=== PATIENT | male | born 1955 | race Caucasian/White ===

== ENCOUNTER 2023-02-08 08:06 | Day surgery (SDC) | payer MEDICARE, BC ==
[~2023-02-08] VITALS: Ht 190.5 cm; Wt 94.0 kg
[~2023-02-08 08:06] MED LIST: BAYE81TA10 PO; LISI5TAB11 PO; METF500T13 PO; NS 1,000 ML IV ONE; PRAV20TA2 PO; VITMTA PO; [UNRECOGNIZED DRUG - CODE] PO
[2023-02-08] MEDS ORDERED: propofoL 500 MG/50 ML VIAL As Ordered ONE (09:17)
[2023-02-08] MEDS ORDERED: LIDOCAINE 2% 100MG/5ML SDV (FOR ANES.) As Ordered ONE (09:17)
[2023-02-08 09:34] VITALS: TEMP 98.2
[2023-02-08 09:56] VITALS: BP 124/60; O2SAT 96
== END 2023-02-08 10:05 | disposition home or self-care (01) ==
LOC: M OPP 08:06
PROVIDERS: ATTEND Surgery
DX: K63.5 Polyp of colon (principal); R19.5 Other fecal abnormalities; Z79.02 Long term (current) use of antithrombotics/antiplatelets; Z79.82 Long term (current) use of aspirin; Z79.84 Long term (current) use of oral hypoglycemic drugs